=== PATIENT | male | born 1970 | race Caucasian/White ===

== ENCOUNTER 2017-11-01 18:26 | Emergency (ER) | payer BC ==
[2017-11-01] MEDS ORDERED: ACETAMINOPHEN 325 MG TABLET (FP) PO ONE (18:38)
[2017-11-01 18:50] VITALS: BP 123/81; PULSE 66; TEMP 98.8; BMI 34.0
[2017-11-01] MEDS ORDERED: ACETAMINOPHEN 325 MG TABLET (FP) ONE (18:50)
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
== END 2017-11-01 20:39 | disposition home or self-care (01) ==
LOC: FER 18:26 → EDSEX 18:26 → FER 20:39
DX: M62.838 Other muscle spasm (principal); V43.52XA Car driver injured in collision with other type car in traffic accident, initial encounter; Y93.89 Activity, other specified; Y92.410 Unspecified street and highway as the place of occurrence of the external cause
CPT/HCPCS: 70450-TC; 72125-TC; 99281-25